=== PATIENT | male | born 1995 | race Two or more races ===

== ENCOUNTER 2024-09-21 08:09 | Emergency (ER) | payer OTHER ==
[~2024-09-21] VITALS: Ht 177.8 cm; Wt 58.5 kg
[2024-09-21 10:15] VITALS: BP 118/84; TEMP 98.6; O2SAT 99
== END 2024-09-21 10:05 ==
LOC: ER 08:13
DX: F19.10 Other psychoactive substance abuse, uncomplicated (principal)